=== PATIENT | female | born 1985 | race Caucasian/White ===

== ENCOUNTER 2018-06-07 07:29 | Inpatient (IN) | payer OTHER ==
[~2018-06-07] VITALS: Ht 167.6 cm; Wt 81.6 kg
[2018-06-07] MEDS ORDERED: PRENATAL 19 TA1 EAC1 PO (09:19)
[2018-06-07] MEDS ORDERED: FE C PLUS TABL1 EACH PO (09:21)
== END 2018-06-09 13:31 | DRG 775 ==
LOC: LDR 07:29 → OB/GYN 19:41
PROC: 10E0XZZ Delivery of Products of Conception, External Approach (ICD-10-PCS; principal; 2018-06-07)
PROC: 0HQ9XZZ Repair Perineum Skin, External Approach (ICD-10-PCS; 2018-06-07)
PROC: 10907ZC Drainage of Amniotic Fluid, Therapeutic from Products of Conception, Via Natural or Artificial Opening (ICD-10-PCS; 2018-06-07)
PROC: 3E033VJ Introduction of Other Hormone into Peripheral Vein, Percutaneous Approach (ICD-10-PCS; 2018-06-07)
PROC: 4A1HXCZ Monitoring of Products of Conception, Cardiac Rate, External Approach (ICD-10-PCS; 2018-06-07)
DX: O70.0 First degree perineal laceration during delivery (principal); Z3A.39 39 weeks gestation of pregnancy; Z37.0 Single live birth

== ENCOUNTER 2021-01-21 10:23 | Outpatient (CLI) | payer OTHER ==
[~2021-01-21 10:23] MED LIST: FE C PLUS TABL1 EACH PO; PRENATAL 19 TA1 EAC1 PO
== END 2021-01-21 10:24 | disposition home or self-care (01) ==
LOC: PPH VACUNA 10:23
DX: Z23 Encounter for immunization (principal)